=== PATIENT | female | born 1930 | race Caucasian/White ===

== ENCOUNTER 2018-05-02 13:44 | Emergency (ER) | payer BC, MEDICARE ==
[~2018-05-02] VITALS: Ht 167.6 cm; Wt 55.0 kg
[~2018-05-02 13:44] MED LIST: ALBU0.63 NEB; ASPI-496 PO; AZIT250T89 PO; CEFD300C37 PO; DILT120T4 PO; FLEC50TA25 PO; LEVA15HF4 INH; LEVO500T47 PO; LEVO75TA PO; PRED20TA PO; PRED50TA PO; RALO60TA PO; TIOT18CA INH; VIT1CAPS11 PO
[2018-05-02] MEDS ORDERED: DILTIAZEM 5 MG/ML, 5ML IVPush STA (14:07)
[2018-05-02] MEDS ORDERED: SODIUM CHLORIDE 0.9% 1,000ML IVBOLUS ONE (14:30)
[2018-05-02] MEDS ORDERED: SODIUM CHLORIDE FLUSH 10ML SYR IVF ONE (14:30)
[2018-05-02 14:44] LABS: BASOPHILS # (AUTO) 0.05 x10^3/uL (0-0.1); BASOPHILS % (AUTO) 1 % (0-1); EOSINOPHILS % (AUTO) 2 % (1-7); LYMPHOCYTES # (AUTO) 1.22 x10^3/uL (1-3.4); LYMPHOCYTES % (AUTO) 12 % (22-44); MD NO; MEAN CORPUSCULAR HGB CONC 32.6 g/dL (32.4-35.8); MEAN CORPUSCULAR VOLUME 85.9 fL (80-100); MEAN PLATELET VOLUME 7.6 fL (7.4-10.4); MONOCYTES % (AUTO) 8 % (2-9); NEUTROPHILS # (AUTO) 7.61 x10^3/uL (1.8-6.8); NEUTROPHILS % (AUTO) 77 % (42-75); PLATELET COUNT 587 x10^3/uL (130-400); RED BLOOD COUNT 5.35 x10^6/uL (3.82-5.3); RED CELL DISTRIBUTION WIDTH 15.1 % (9.6-15.2)
[2018-05-02 14:52] LABS: INTERNATIONAL NORMALIZED RATIO 1.07 (0.93-1.1); PROTHROMBIN TIME 11.1 Seconds (9.6-11.5)
[2018-05-02 14:54] LABS: ALBUMIN 3.7 g/dL (3.4-5.0); ANION GAP 7 mmol/L (5-15); CALCIUM 8.9 mg/dL (8.5-10.1); CHLORIDE 106 mmol/L (98-107)
[2018-05-02 15:00] LABS: ALANINE AMINOTRANSFERASE 19 U/L (12-78); ALKALINE PHOSPHATASE 116 U/L (45-117); BILIRUBIN,TOTAL 0.4 mg/dL (0.2-1.0); CREATININE 1.16 mg/dL (0.55-1.02); TOTAL PROTEIN 6.7 g/dL (6.4-8.2); TROPONIN I < 0.015 ng/mL (0.000-0.045)
[2018-05-02] MEDS ORDERED: DILTIAZEM 5 MG/ML, 5ML ONE (15:08)
[2018-05-02] MEDS ORDERED: METOPROLOL SUCCINATE 25 MG TAB.ER.24H PO ONE (16:00)
[2018-05-02] MEDS ORDERED: APIXABAN 5 MG TABLET PO ONE (16:00)
[2018-05-02 16:20] VITALS: BP 128/88
== END 2018-05-02 16:43 ==
LOC: ED 16:40
DX: I48.91 Unspecified atrial fibrillation (principal); Z87.891 Personal history of nicotine dependence; Z90.89 Acquired absence of other organs
CPT/HCPCS: 36415; 71045; 80053; 80162; 83735; 83880; 84436; 84443; 84484; 85025; 85610; 85730; 93005; 96374; 99291; J7030

== ENCOUNTER 2018-05-15 13:59 | Inpatient (IN) | payer MEDICARE ==
[~2018-05-15] VITALS: Ht 167.6 cm; Wt 56.2 kg
[2018-05-15] MEDS ORDERED: ASPIRIN 81 MG TABLET CHEW ONE (14:18)
[2018-05-15] MEDS ORDERED: ASPIRIN 81 MG TABLET CHEW PO ONE (14:30)
[2018-05-15] MEDS ORDERED: SODIUM CHLORIDE FLUSH 10ML SYR IVF ONE (14:30)
[2018-05-15 14:37] LABS: BASOPHILS # (AUTO) 0.22 x10^3/uL (0-0.1); BASOPHILS % (AUTO) 2 % (0-1); EOSINOPHILS # (AUTO) 0.13 x10^3/uL (0-0.4); EOSINOPHILS % (AUTO) 1 % (1-7); LYMPHOCYTES % (AUTO) 8 % (22-44); MD NO; MEAN CORPUSCULAR HEMOGLOBIN 27.4 pg (27.0-34.8); MEAN CORPUSCULAR HGB CONC 32.3 g/dL (32.4-35.8); MEAN CORPUSCULAR VOLUME 84.7 fL (80-100); MEAN PLATELET VOLUME 8.1 fL (7.4-10.4); MONOCYTES # (AUTO) 0.91 x10^3/uL (0.2-0.8); MONOCYTES % (AUTO) 8 % (2-9); NEUTROPHILS # (AUTO) 8.77 x10^3/uL (1.8-6.8); NEUTROPHILS % (AUTO) 80 % (42-75); PLATELET COUNT 611 x10^3/uL (130-400); RED BLOOD COUNT 4.58 x10^6/uL (3.82-5.3); RED CELL DISTRIBUTION WIDTH 15.3 % (9.6-15.2)
[2018-05-15 14:46] LABS: ANION GAP 7 mmol/L (5-15); CALCIUM 8.7 mg/dL (8.5-10.1); CHLORIDE 107 mmol/L (98-107); CREATININE 0.92 mg/dL (0.55-1.02)
[2018-05-15 14:50] LABS: TROPONIN I < 0.015 ng/mL (0.000-0.045)
[2018-05-15] MEDS ORDERED: ALBUTEROL SULFATE 2.5 MG/3 ML HHN PRN (17:00)
[2018-05-15] MEDS ORDERED: DOCUSATE 100 MG CAPSULE PO PRN (17:00)
[2018-05-15] MEDS ORDERED: POLYETHYLENE GLYCOL 17 GM PACKET PO PRN (17:00)
[2018-05-15] MEDS ORDERED: ONDANSETRON 2MG/ML, 2ML IVPush PRN (17:00)
[2018-05-15] MEDS ORDERED: morphine SULFATE 10 MG/ML, 1ML IVPush PRN (17:00)
[2018-05-15] MEDS ORDERED: HYDROcodone/APAP 5/325 TABLET PO PRN (17:00)
[2018-05-15] MEDS ORDERED: ACETAMINOPHEN 325 MG TABLET PO PRN (17:00)
[2018-05-15] MEDS ORDERED: CEFTRIAXONE PMX 1GM/50ML 50 ML ONE (17:04)
[2018-05-15] MEDS: CEFTRIAXONE PMX 1GM/50ML 50 ML IV SCH (17:30)
[2018-05-15 18:25] VITALS: BP 179/81
[2018-05-15] MEDS ORDERED: GUAIFENESIN/COD200MG-20MG/10ML LIQUID PO PRN (18:30)
[2018-05-15] MEDS ORDERED: NS + 20MEQ KCL 1,000 ML IV SCH (18:30)
[2018-05-15] MEDS ORDERED: AZITHROMYCIN 500 MG in SODIUM CHLORIDE 0.9% 250 ML IV SCH (18:30)
[2018-05-15] MEDS ORDERED: hydrALAzine 20 MG/ML, 1ML ONE (18:36)
[2018-05-15] MEDS ORDERED: ALBUTEROL/IPRATROPIUM 2.5MG/0.5MG, 3 ML ONE (18:42)
[2018-05-15] MEDS ORDERED: hydrALAzine 20 MG/ML, 1ML IV ONE (19:00)
[2018-05-15 19:10] VITALS: BP 150/64
[2018-05-15] MEDS ORDERED: UMEC1DIS INH (19:42)
[2018-05-15] MEDS ORDERED: ALBU8.5H8 INH (19:44)
[2018-05-15] MEDS ORDERED: IPRATROPIUM 0.5 MG/2.5 ML INHA HHN SCH ×2 (20:00→21:00)
[2018-05-15 20:06] VITALS: BP 146/61
[2018-05-15 21:50] VITALS: BP 133/62
[2018-05-15] MEDS: DILTIAZEM 90 MG CAP.ER.12H PO SCH (21:51)
[2018-05-15] MEDS: FLECAINIDE 100MG TABLET PO SCH (21:52)
[2018-05-15] MEDS: ENOXAPARIN 40 MG/0.4 ML SQ SCH (21:53)
[2018-05-16 01:48] VITALS: BP 140/61
[2018-05-16 04:21] LABS: MICROSCOPIC NOT IND
[2018-05-16 04:29] LABS: CULTURE INDICATED? NO
[2018-05-16] MEDS: ALBUTEROL/IPRATROPIUM 2.5MG/0.5MG, 3 ML NPPB SCH ×4 (06:35→19:55)
[2018-05-16] MEDS ORDERED: ALBUTEROL/IPRATROPIUM 2.5MG/0.5MG, 3 ML ONE (06:37)
[2018-05-16 08:00] VITALS: BP 152/63
[2018-05-16] MEDS: FLECAINIDE 100MG TABLET PO SCH ×2 (08:52→20:51)
[2018-05-16] MEDS: DILTIAZEM 90 MG CAP.ER.12H PO SCH ×2 (08:52→20:51)
[2018-05-16] MEDS: RALOXIFENE 60 MG TABLET PO SCH (08:53)
[2018-05-16] MEDS: SENNA/DOCUSATE TABLET PO SCH (08:53)
[2018-05-16] MEDS: LEVOTHYROXINE 75 MCG TABLET PO SCH (08:54)
[2018-05-16] MEDS: DOXYCYCLINE 100MG TABLET PO SCH ×2 (08:54→20:52)
[2018-05-16] MEDS: ASPIRIN 81 MG TABLET EC PO SCH (08:54)
[2018-05-16] MEDS ORDERED: LEVOTHYROXINE 75 MCG TABLET PO SCH (09:00)
[2018-05-16 13:12] VITALS: BP 131/55
[2018-05-16] MEDS: CEFTRIAXONE PMX 1GM/50ML 50 ML IV SCH (17:44)
[2018-05-16 18:35] VITALS: BP 117/59
[2018-05-16 20:49] VITALS: BP 131/62
[2018-05-16] MEDS: ENOXAPARIN 40 MG/0.4 ML SQ SCH (20:52)
[2018-05-17 01:31] VITALS: BP 135/65
[2018-05-17] MEDS: LEVOTHYROXINE 75 MCG TABLET PO SCH (05:18)
[2018-05-17] MEDS: ALBUTEROL/IPRATROPIUM 2.5MG/0.5MG, 3 ML NPPB SCH ×4 (07:00→20:00)
[2018-05-17 08:23] VITALS: BP 179/76
[2018-05-17] MEDS: DILTIAZEM 90 MG CAP.ER.12H PO SCH ×2 (08:25→20:59)
[2018-05-17] MEDS: SENNA/DOCUSATE TABLET PO SCH (08:25)
[2018-05-17] MEDS: RALOXIFENE 60 MG TABLET PO SCH (08:26)
[2018-05-17] MEDS: ASPIRIN 81 MG TABLET EC PO SCH (08:26)
[2018-05-17] MEDS: DOXYCYCLINE 100MG TABLET PO SCH ×2 (08:26→21:02)
[2018-05-17] MEDS: FLECAINIDE 100MG TABLET PO SCH ×2 (08:26→20:59)
[2018-05-17] MEDS ORDERED: FUROSEMIDE 40 MG/4 ML IV ONE (09:00)
[2018-05-17 10:32] LABS: BASOPHILS # (AUTO) 0.02 x10^3/uL (0-0.1); BASOPHILS % (AUTO) 0 % (0-1); EOSINOPHILS # (AUTO) 0.12 x10^3/uL (0-0.4); EOSINOPHILS % (AUTO) 1 % (1-7); LYMPHOCYTES # (AUTO) 0.74 x10^3/uL (1-3.4); LYMPHOCYTES % (AUTO) 8 % (22-44); MD NO; MEAN CORPUSCULAR HEMOGLOBIN 27.3 pg (27.0-34.8); MEAN CORPUSCULAR HGB CONC 32.6 g/dL (32.4-35.8); MEAN CORPUSCULAR VOLUME 83.9 fL (80-100); MEAN PLATELET VOLUME 7.8 fL (7.4-10.4); MONOCYTES # (AUTO) 0.87 x10^3/uL (0.2-0.8); MONOCYTES % (AUTO) 9 % (2-9); NEUTROPHILS # (AUTO) 7.65 x10^3/uL (1.8-6.8); NEUTROPHILS % (AUTO) 82 % (42-75); PLATELET COUNT 558 x10^3/uL (130-400); RED BLOOD COUNT 4.25 x10^6/uL (3.82-5.3); RED CELL DISTRIBUTION WIDTH 15.3 % (9.6-15.2)
[2018-05-17] MEDS: GUAIFENESIN ER 600 MG TABLET PO SCH ×2 (10:38→20:59)
[2018-05-17 10:44] LABS: ANION GAP 7 mmol/L (5-15); CALCIUM 8.3 mg/dL (8.5-10.1); CHLORIDE 108 mmol/L (98-107); CREATININE 0.66 mg/dL (0.55-1.02)
[2018-05-17 14:18] VITALS: BP 159/70
[2018-05-17] MEDS: CEFTRIAXONE PMX 1GM/50ML 50 ML IV SCH (17:39)
[2018-05-17 19:08] VITALS: BP 132/65
[2018-05-17] MEDS: ENOXAPARIN 40 MG/0.4 ML SQ SCH (20:59)
[2018-05-18 01:15] VITALS: BP 134/71
[2018-05-18] MEDS: LEVOTHYROXINE 75 MCG TABLET PO SCH (05:58)
[2018-05-18 07:31] VITALS: BP 153/68
[2018-05-18] MEDS: ASPIRIN 81 MG TABLET EC PO SCH (08:08)
[2018-05-18] MEDS: GUAIFENESIN ER 600 MG TABLET PO SCH (08:09)
[2018-05-18] MEDS: FLECAINIDE 100MG TABLET PO SCH (08:09)
[2018-05-18] MEDS: SENNA/DOCUSATE TABLET PO SCH (08:09)
[2018-05-18] MEDS: RALOXIFENE 60 MG TABLET PO SCH (08:09)
[2018-05-18] MEDS: DILTIAZEM 90 MG CAP.ER.12H PO SCH (08:09)
[2018-05-18] MEDS: DOXYCYCLINE 100MG TABLET PO SCH (08:10)
[2018-05-18] MEDS: ALBUTEROL/IPRATROPIUM 2.5MG/0.5MG, 3 ML NPPB SCH ×3 (09:30→15:50)
[2018-05-18] MEDS ORDERED: PIPERACILLIN/TAZO/PMX 3.375GM 50 ML IV SCH (13:00)
[2018-05-18] MEDS ORDERED: PIPE3.375 IV (13:20)
[2018-05-18] MEDS ORDERED: ENOX40SY4 SQ (13:20)
[2018-05-18] MEDS ORDERED: GUAI600T31 PO (13:20)
[2018-05-18 13:51] VITALS: BP 130/62
== END 2018-05-18 17:24 | DRG 178 ==
LOC: ED 16:33 → EDIP 16:34 → SUATTDRO 16:35 → ED 16:38 → 5SO 18:05 → 3NE 05-17 19:48
PROVIDERS: ADMIT Family Medicine; ATTEND Family Medicine
DX: J15.1 Pneumonia due to Pseudomonas (principal); J96.10 Chronic respiratory failure, unspecified whether with hypoxia or hypercapnia; E44.0 Moderate protein-calorie malnutrition; J44.0 Chronic obstructive pulmonary disease with (acute) lower respiratory infection; K59.09 Other constipation; R53.81 Other malaise; E03.9 Hypothyroidism, unspecified; I48.91 Unspecified atrial fibrillation; Z51.5 Encounter for palliative care; M81.0 Age-related osteoporosis without current pathological fracture; Z66 Do not resuscitate; H35.30 Unspecified macular degeneration; H54.8 Legal blindness, as defined in USA; Z99.81 Dependence on supplemental oxygen; Z87.891 Personal history of nicotine dependence; Z68.20 Body mass index [BMI] 20.0-20.9, adult; Z82.49 Family history of ischemic heart disease and other diseases of the circulatory system; Z82.5 Family history of asthma and other chronic lower respiratory diseases; Z83.3 Family history of diabetes mellitus; Z85.3 Personal history of malignant neoplasm of breast; Z90.49 Acquired absence of other specified parts of digestive tract; Z90.89 Acquired absence of other organs; Z90.11 Acquired absence of right breast and nipple; Z98.891 History of uterine scar from previous surgery
CPT/HCPCS: 36415; 71045; 80048; 81003; 82040; 83605; 83880; 84145; 84484; 85025; 87040; 87070; 87077; 87186; 87205; 90656; 93005; 94640; 96365; 99285; G0378; J0456; J0696; J1650; J1940; J2543; J3480; J7620; J7644; J0360; J7050; J7512

== ENCOUNTER 2018-07-19 09:48 | Inpatient (IN) | payer MEDICARE, BC ==
[~2018-07-19] VITALS: Ht 167.6 cm; Wt 53.2 kg
[~2018-07-19 09:48] MED LIST changes: +ALBU8.5H8 INH; +ENOX40SY4 SQ; +GUAI600T31 PO; +PIPE3.375 IV; +UMEC1DIS INH
[2018-07-19] MEDS ORDERED: SODIUM CHLORIDE FLUSH 10ML SYR IVF ONE (11:30)
[2018-07-19 11:53] LABS: MEAN CORPUSCULAR HEMOGLOBIN 23.3 pg (27.0-34.8); MEAN CORPUSCULAR HGB CONC 31.1 g/dL (32.4-35.8); MEAN PLATELET VOLUME 7.9 fL (7.4-10.4); PLATELET COUNT 517 x10^3/uL (130-400); RED BLOOD COUNT 3.07 x10^6/uL (3.82-5.3); RED CELL DISTRIBUTION WIDTH 18.3 % (9.6-15.2)
[2018-07-19 11:56] LABS: ALBUMIN 3.1 g/dL (3.4-5.0); ANION GAP 5 mmol/L (5-15); CALCIUM 8.3 mg/dL (8.5-10.1); CHLORIDE 109 mmol/L (98-107); CREATININE 0.59 mg/dL (0.55-1.02)
[2018-07-19 12:01] LABS: TROPONIN I < 0.015 ng/mL (0.000-0.045)
[2018-07-19 12:09] LABS: BASOPHILS # (AUTO) 0.01 x10^3/uL (0-0.1); BASOPHILS % (AUTO) 0 % (0-1); EOSINOPHILS # (AUTO) 0.07 x10^3/uL (0-0.4); EOSINOPHILS % (AUTO) 1 % (1-7); LYMPHOCYTES # (AUTO) 0.89 x10^3/uL (1-3.4); LYMPHOCYTES % (AUTO) 11 % (22-44); MD MORPH REVIEW ONLY; MONOCYTES # (AUTO) 0.59 x10^3/uL (0.2-0.8); MONOCYTES % (AUTO) 7 % (2-9); NEUTROPHILS # (AUTO) 6.59 x10^3/uL (1.8-6.8); NEUTROPHILS % (AUTO) 81 % (42-75)
[2018-07-19 12:10] LABS: ANISOCYTOSIS 1+; HYPOCHROMIA 1+; MICROCYTOSIS 1+; POLYCHROMASIA 1+
[2018-07-19 12:11] LABS: <PLATELET ESTIMATE> INCREASED; LARGE PLATELETS 1+
[2018-07-19 13:12] LABS: INTERNATIONAL NORMALIZED RATIO 1.21 (0.93-1.1); PROTHROMBIN TIME 12.7 Seconds (9.6-11.5)
[2018-07-19] MEDS ORDERED: APIX5TAB PO (13:23)
[2018-07-19] MEDS ORDERED: SODIUM CHLORIDE 0.9% 1,000 ML IV SCH (13:26)
[2018-07-19] MEDS ORDERED: LABETALOL 5MG/ML, 20ML IVPush PRN (13:30)
[2018-07-19] MEDS ORDERED: ENALAPRILAT 1.25 MG/ML, 2ML IVPush PRN (13:30)
[2018-07-19] MEDS ORDERED: ACETAMINOPHEN 325 MG TABLET PO PRN (13:30)
[2018-07-19] MEDS ORDERED: ONDANSETRON 2MG/ML, 2ML IVPush PRN (13:30)
[2018-07-19] MEDS ORDERED: ONDANSETRON ODT 4 MG PO PRN (13:30)
[2018-07-19 14:25] LABS: % IRON SATURATION 2 % (20-55); IRON LEVEL 6 mcg/dL (50-170); TOTAL IRON BINDING CAPACITY 359 mcg/dL (250-450)
[2018-07-19 15:01] VITALS: BP 133/65
[2018-07-19] MEDS: ALBUTEROL SULFATE 2.5 MG/3 ML HHN SCH ×2 (16:00→19:36)
[2018-07-19 16:38] VITALS: BP 126/55
[2018-07-19 16:54] VITALS: BP 125/53
[2018-07-19 17:54] VITALS: BP 121/48
[2018-07-19 18:40] VITALS: BP 125/52
[2018-07-19 18:58] VITALS: BP 120/51
[2018-07-19] MEDS: BUDESONIDE 0.5 MG/2 ML INHA HHN SCH (19:37)
[2018-07-19] MEDS: DILTIAZEM 90 MG CAP.ER.12H PO SCH (21:03)
[2018-07-19] MEDS: FLECAINIDE 100MG TABLET PO SCH (21:04)
[2018-07-20 00:58] VITALS: BP 132/50
[2018-07-20 06:19] LABS: BASOPHILS # (AUTO) 0.07 x10^3/uL (0-0.1); BASOPHILS % (AUTO) 1 % (0-1); EOSINOPHILS # (AUTO) 0.19 x10^3/uL (0-0.4); EOSINOPHILS % (AUTO) 3 % (1-7); LYMPHOCYTES # (AUTO) 1.02 x10^3/uL (1-3.4); LYMPHOCYTES % (AUTO) 13 % (22-44); MD NO; MEAN CORPUSCULAR HEMOGLOBIN 24.1 pg (27.0-34.8); MEAN CORPUSCULAR HGB CONC 32.1 g/dL (32.4-35.8); MEAN PLATELET VOLUME 8.2 fL (7.4-10.4); MONOCYTES # (AUTO) 0.71 x10^3/uL (0.2-0.8); MONOCYTES % (AUTO) 9 % (2-9); NEUTROPHILS # (AUTO) 5.67 x10^3/uL (1.8-6.8); NEUTROPHILS % (AUTO) 74 % (42-75); PLATELET COUNT 457 x10^3/uL (130-400); RED BLOOD COUNT 3.09 x10^6/uL (3.82-5.3); RED CELL DISTRIBUTION WIDTH 17.9 % (9.6-15.2)
[2018-07-20 06:28] LABS: CHLORIDE 110 mmol/L (98-107)
[2018-07-20] MEDS: ALBUTEROL SULFATE 2.5 MG/3 ML HHN SCH ×2 (06:30→10:20)
[2018-07-20] MEDS: BUDESONIDE 0.5 MG/2 ML INHA HHN SCH ×2 (06:30→10:20)
[2018-07-20 06:46] LABS: ALANINE AMINOTRANSFERASE 22 U/L (12-78); ALBUMIN 2.9 g/dL (3.4-5.0); ALKALINE PHOSPHATASE 76 U/L (45-117); ANION GAP 7 mmol/L (5-15); BILIRUBIN,TOTAL 0.3 mg/dL (0.2-1.0); CALCIUM 8.1 mg/dL (8.5-10.1); CREATININE 0.68 mg/dL (0.55-1.02); FREE T4 (FREE THYROXINE) 0.85 ng/dL (0.76-1.46); TOTAL PROTEIN 5.3 g/dL (6.4-8.2)
[2018-07-20 07:11] VITALS: BP 136/53
[2018-07-20] MEDS: DILTIAZEM 90 MG CAP.ER.12H PO SCH (08:47)
[2018-07-20] MEDS: FLECAINIDE 100MG TABLET PO SCH (08:47)
[2018-07-20] MEDS ORDERED: LEVOTHYROXINE 75 MCG TABLET PO SCH (09:00)
[2018-07-20 13:28] VITALS: BP 132/58
[2018-07-20] MEDS ORDERED: FERR-51 PO (14:51)
[2018-07-20] MEDS ORDERED: FERROUS SULFATE 325 MG TABLET PO SCH (17:00)
[2018-07-20] MEDS ORDERED: ALBUTEROL SULFATE 2.5 MG/3 ML HHN SCH (21:00)
== END 2018-07-20 19:06 | disposition hospice, home (50) | DRG 378 ==
LOC: ED 11:36 → EDIP 13:26 → 4EST 14:47
PROVIDERS: ADMIT Hospitalist; ATTEND Hospitalist
PROC: 30233N1 Transfusion of Nonautologous Red Blood Cells into Peripheral Vein, Percutaneous Approach (ICD-10-PCS; principal; 2018-07-19)
DX: K57.91 Diverticulosis of intestine, part unspecified, without perforation or abscess with bleeding (principal); D62 Acute posthemorrhagic anemia; D68.59 Other primary thrombophilia; J98.11 Atelectasis; D53.9 Nutritional anemia, unspecified; E03.9 Hypothyroidism, unspecified; H54.8 Legal blindness, as defined in USA; I48.2 Chronic atrial fibrillation; Z53.29 Procedure and treatment not carried out because of patient's decision for other reasons; J44.9 Chronic obstructive pulmonary disease, unspecified; M81.0 Age-related osteoporosis without current pathological fracture; Z51.5 Encounter for palliative care; Z66 Do not resuscitate; Z79.01 Long term (current) use of anticoagulants; Z80.1 Family history of malignant neoplasm of trachea, bronchus and lung; Z82.49 Family history of ischemic heart disease and other diseases of the circulatory system; Z85.3 Personal history of malignant neoplasm of breast; Z87.891 Personal history of nicotine dependence; Z90.11 Acquired absence of right breast and nipple; Z90.49 Acquired absence of other specified parts of digestive tract; Z99.81 Dependence on supplemental oxygen; Z87.01 Personal history of pneumonia (recurrent)
CPT/HCPCS: 36415; 36430; 71045; 80048; 80053; 82040; 83540; 83550; 83735; 84100; 84439; 84443; 84484; 85014; 85018; 85025; 85610; 85730; 86850; 86870; 86900; 86922; 86923; 93005; 94640; 99285; G0378; J7613; J7626; J7030; P9016